=== PATIENT | male | born 1980 | race Caucasian/White ===

== ENCOUNTER 2018-06-10 03:42 | Emergency (ER) | payer SELFPAY | END 2018-06-10 07:30 | disposition left against medical advice (07) | LOC: E/R 03:42 | DX: Z53.21 Procedure and treatment not carried out due to patient leaving prior to being seen by health care provider (principal) ==

== ENCOUNTER 2018-06-14 01:16 | Emergency (ER) | payer SELFPAY | END 2018-06-14 02:02 | disposition left against medical advice (07) | LOC: E/R 01:16 | DX: Z53.21 Procedure and treatment not carried out due to patient leaving prior to being seen by health care provider (principal) ==

== ENCOUNTER 2018-06-17 01:24 | Emergency (ER) | payer SELFPAY ==
[2018-06-17] MEDS ORDERED: LORAZEPAM 1 MG TAB PO (02:30)
[2018-06-17] MEDS ORDERED: LEVETIRACETAM 500 MG TAB PO (02:30)
== END 2018-06-17 02:45 | disposition left against medical advice (07) ==
LOC: E/R 01:24
DX: G40.909 Epilepsy, unspecified, not intractable, without status epilepticus (principal); F17.210 Nicotine dependence, cigarettes, uncomplicated
CPT/HCPCS: 99283

== ENCOUNTER 2018-06-18 04:11 | Emergency (ER) | payer OTHER ==
[2018-06-18] MEDS ORDERED: SOD CHLORIDE 0.9% 500 ML IV (04:36)
== END 2018-06-18 05:31 | disposition home or self-care (01) ==
LOC: E/R 04:11
DX: G40.909 Epilepsy, unspecified, not intractable, without status epilepticus (principal); R40.2142 Coma scale, eyes open, spontaneous, at arrival to emergency department; R40.2252 Coma scale, best verbal response, oriented, at arrival to emergency department; R40.2362 Coma scale, best motor response, obeys commands, at arrival to emergency department; F17.210 Nicotine dependence, cigarettes, uncomplicated; Z86.59 Personal history of other mental and behavioral disorders
CPT/HCPCS: 93005; 99283-25

== ENCOUNTER 2018-06-26 10:01 | Emergency (ER) | payer OTHER ==
[2018-06-26] MEDS ORDERED: OLANZAPINE (ODT) 5 MG TAB PO (10:35)
[2018-06-26] MEDS ORDERED: LORAZEPAM 1 MG TAB PO (11:00)
== END 2018-06-26 11:03 | disposition home or self-care (01) ==
LOC: E/R 10:01
DX: F99 Mental disorder, not otherwise specified (principal); F17.210 Nicotine dependence, cigarettes, uncomplicated
CPT/HCPCS: 82962; 99283

== ENCOUNTER 2018-08-07 23:25 | Emergency (ER) | payer SELFPAY, OTHER | END 2018-08-08 01:30 | disposition left against medical advice (07) | LOC: FTE 23:25 | DX: Z53.21 Procedure and treatment not carried out due to patient leaving prior to being seen by health care provider (principal) ==